=== PATIENT | female | born 1995 | race Caucasian/White ===

== ENCOUNTER 2016-12-05 15:26 | Emergency (ER) | payer OTHER ==
[~2016-12-05] VITALS: Ht 132.1 cm; Wt 29.7 kg
[~2016-12-05 15:26] MED LIST: LEVAQUIN500 MG PO
[2016-12-05 16:33] LABS: EOSINOPHIL (%) 0.1 % (0-5); HEMATOCRIT 42.2 % (36.0-46.0); IMMATURE GRANULOCYTE (%) 0.7 % (0.0-0.7); IMMATURE GRANULOCYTE COUNT 0.1 K/uL; INSTRUMENT ABS NEUTROPHIL CT 16.5 K/uL; LYMPHOCYTE COUNT 1.4 K/uL (1.0-2.8); MCH 29.2 PG (29.0-34.0); MCHC 32.7 G/DL (30.0-36.0); MCV 89.4 FL (83-99); MEAN PLAT.VOLUME 10.2 uM^3 (9.5-12.4); MONOCYTE (%) 7.6 % (3-12); MONOCYTE COUNT 1.5 K/uL (0-0.8); NEUTROPHIL (%) 84.3 % (45-76); NEUTROPHIL COUNT 16.5 K/uL (1.8-6.4); PLATELET COUNT 578 K/uL (156-360); RBC DIS.WIDTH-SD 45.6 % (39-53); RED BLOOD COUNT 4.72 M/uL (3.80-5.20); WHITE BLOOD COUNT 19.6 K/uL (4.1-10.2)
[2016-12-05 16:42] LABS: CHLORIDE 107 mEq/L (99-109); POTASSIUM 3.3 mEq/L (3.7-5.4); SODIUM 140 mEq/L (136-147)
[2016-12-05 16:44] LABS: GLUCOSE 202 mg/dL (70-99)
[2016-12-05 16:45] LABS: ANION GAP 18 MEQ/L (2-14)
[2016-12-05 16:46] LABS: TOTAL BILIRUBIN 0.5 mg/dL (0.0-1.0)
[2016-12-05 16:47] LABS: ALKALINE PHOSPHATASE 106 IU/L (3-129)
[2016-12-05 16:48] LABS: GFR ESTIMATE (CALCULATED) > 59 mL/min/
[2016-12-05 16:49] LABS: UREA NITROGEN (BUN) 18 mg/dL (9-23)
[2016-12-05 16:51] LABS: LIPASE 43 U/L (1.0-51.0)
[2016-12-05 18:09] LABS: BASE EXCESS -7.3 mEq/L (-3 to +3); BICARBONATE 19.3 mEq/L (22-26); CARBOXY HGB 2.6 % (0-5); METHEMOGLOBIN 1.4 % (0-1.5); PCO2 42 mm Hg (35-45); PO2 161 mm Hg (80-100)
[2016-12-05 18:10] LABS: COMMENTS - BLOOD GASES C+; DEVICE 840; SITE RB; pH 7.27 (7.35-7.45)
[2016-12-05 18:11] LABS: FI02 30 %; MECHANICAL RATE 10 resp/min; MODE SIMV+; PEEP 5 CM/H20; PRES. SUPPORT 10 CM/H2O; TIDAL VOLUME 225 ML; TOTAL RESP RATE 25 resp/min
[2016-12-05 18:42] LABS: ADD MIUA? NO; BILIRUBIN NEGATIVE; BLOOD NEGATIVE; COLOR STRAW ((YELLOW)); GLUCOSE (STRIP) >=500; KETONES NEGATIVE; LEUKOCYTES NEGATIVE; NITRITE NEGATIVE; PROTEIN (STRIP) NEGATIVE; SPECIFIC GRAVITY 1.008 (1.000-1.030); UCUL ADDED? NO; UROBILINOGEN 0.2 MG/DL (0.2-1.0)
[2016-12-06 03:39] VITALS: BP 138/103
== END 2016-12-06 03:51 | disposition short-term general hospital (02) ==
LOC: EME 15:26
PROVIDERS: Emergency Medicine
PROC: 5A0935Z Assistance with Respiratory Ventilation, Less than 24 Consecutive Hours (ICD-10-PCS; principal; 2016-12-05)
DX: R25.3 Fasciculation (principal); G12.21 Amyotrophic lateral sclerosis; R56.9 Unspecified convulsions; E87.6 Hypokalemia; E87.4 Mixed disorder of acid-base balance; R41.82 Altered mental status, unspecified; Z99.11 Dependence on respirator [ventilator] status; Z93.0 Tracheostomy status; Z98.1 Arthrodesis status
CPT/HCPCS: 36600; 70450; 71010; 80053; 81003; 82803; 83605; 83690; 85025; 87040; 87070; 87077; 87147; 87186; 87205; 94002; 94003; 99281; 99285; J0696; J1953; J2060; J2250; J2704; J3370; J3480; J7050